=== PATIENT | male | born 1955 | race Caucasian/White ===

== ENCOUNTER 2020-09-19 21:24 | Inpatient (IN) | payer MEDICARE, OTHER ==
[~2020-09-19] VITALS: Ht 165.1 cm; Wt 70.1 kg
[2020-09-20 00:57] LABS: HEMOGLOBIN 9.6 gm/dl (14.0-17.5); RED BLOOD COUNT 3.98 M/UL (4.20-5.50); WHITE BLOOD COUNT 9.1 K/UL (4.5-11.0)
[2020-09-20 01:16] LABS: BUN/CREATININE RATIO 10 (0-10)
--- NOTE | 2020-09-20 16:59 | NUR ---
UNABLE TO OBTAIN IV ACCESS AFTER MULTIPLE ATTEMPTS. SPOKE WITH SECURITY PROGRAM MANAGER AND WILL WAIT UNTIL COMMERCIAL INTERIOR DESIGNER NURSE COMES IN TO USE ULTRASOUND TO OBTAIN IV ACCESS.
[2020-09-21 03:42] LABS: HEMOGLOBIN 8.8 gm/dl (14.0-17.5); RED BLOOD COUNT 3.64 M/UL (4.20-5.50)
[2020-09-21 03:45] LABS: WHITE BLOOD COUNT 12.2 K/UL (4.5-11.0)
[2020-09-21 04:04] LABS: BUN/CREATININE RATIO 18 (0-10)
[2020-09-22 02:18] LABS: HEMOGLOBIN 9.2 gm/dl (14.0-17.5); RED BLOOD COUNT 3.87 M/UL (4.20-5.50); WHITE BLOOD COUNT 9.5 K/UL (4.5-11.0)
[2020-09-22 02:56] LABS: BUN/CREATININE RATIO 13 (0-10)
--- NOTE | 2020-09-23 17:27 | NUR ---
20G X 10CM MIDLINE PLACED IN LEFT BRACHIAL VEIN, USING ULTRASOUND GUIDANCE. ASPIRATES AND FLUSHES WELL. NO COMPLICATIONS.
== END 2020-09-23 19:40 | disposition critical access hospital (66) | DRG 282 ==
LOC: PROG CARE 23:14
PROVIDERS: Internal Medicine; ADMIT Internal Medicine
PROC: B24BZZ4 Ultrasonography of Heart with Aorta, Transesophageal (ICD-10-PCS; principal; 2020-09-20)
PROC: 0DJ08ZZ Inspection of Upper Intestinal Tract, Via Natural or Artificial Opening Endoscopic (ICD-10-PCS; 2020-09-22)
PROC: 0DJD8ZZ Inspection of Lower Intestinal Tract, Via Natural or Artificial Opening Endoscopic (ICD-10-PCS; 2020-09-22)
PROC: 4A023N7 Measurement of Cardiac Sampling and Pressure, Left Heart, Percutaneous Approach (ICD-10-PCS; 2020-09-23)
PROC: B2111ZZ Fluoroscopy of Multiple Coronary Arteries using Low Osmolar Contrast (ICD-10-PCS; 2020-09-23)
DX: I21.4 Non-ST elevation (NSTEMI) myocardial infarction (principal); Z20.822 Contact with and (suspected) exposure to COVID-19; I10 Essential (primary) hypertension; D50.9 Iron deficiency anemia, unspecified; Z85.038 Personal history of other malignant neoplasm of large intestine; Z90.49 Acquired absence of other specified parts of digestive tract; Z88.0 Allergy status to penicillin; Z91.040 Latex allergy status; Z82.49 Family history of ischemic heart disease and other diseases of the circulatory system; Z79.82 Long term (current) use of aspirin; Z79.01 Long term (current) use of anticoagulants; Z80.0 Family history of malignant neoplasm of digestive organs; Z91.041 Radiographic dye allergy status; I24.9 Acute ischemic heart disease, unspecified
CPT/HCPCS: ECHO; 36415; 71045; 80048; 80061; 82550; 82553; 82962; 83880; 84484; 85025; 85347; 85610; 85730; 93005; 93306; 93571; 99152; 99153; C1751; C1769; C1887; J0153; J1644; J1650; J2001; J2250; J2405; J2704; J7030; J7120; Q9967; U0002